=== PATIENT | male | born 1985 | race Caucasian/White ===

== ENCOUNTER 2019-01-08 10:50 | Emergency (ER) | payer MEDICAID ==
[~2019-01-08] VITALS: Ht 172.7 cm; Wt 113.0 kg
[2019-01-08] MEDS ORDERED: normal saline 1000ML IV soln IVB ONE (11:00)
[2019-01-08] MEDS ORDERED: LIDOcaine 1% w/EPI 1:200,000 injection 10mL vial IM ONE (11:10)
[2019-01-08] MEDS ORDERED: TETanus/Pertussis (Acell)/Diphther VAC/PF (Tdap-Adult) 0.5ml syringe IM ONE (11:10)
[2019-01-08] MEDS: morphine 2 MG/ML inj. syringe IV PRN ×2 (11:13→11:22)
[2019-01-08] MEDS ORDERED: ondansetron/PF 4mg/2ml inj IV ONE (11:15)
[2019-01-08 11:28] LABS: BASOPHILS % (AUTO) 0.4 % (0-1); EOSINOPHILS # (AUTO) 0.1 X10'3 (0-0.9); EOSINOPHILS % (AUTO) 0.9 % (0-6); HEMATOCRIT 44.4 % (42.0-52.0); HEMOGLOBIN 15.3 g/dl (14.0-17.9); LYMPHOCYTES # (AUTO) 1.4 X10'3 (1.1-4.8); LYMPHOCYTES % (AUTO) 17.1 % (21-51); MEAN CORPUSCULAR HEMOGLOBIN 33.2 PG (27.0-31.0); MEAN CORPUSCULAR HGB CONC 34.5 g/dL (33.0-36.5); MEAN CORPUSCULAR VOLUME 96.1 FL (78-98); MEAN PLATELET VOLUME 8.7 FL (7.4-10.4); MONOCYTES # (AUTO) 0.5 X10'3 (0-0.9); MONOCYTES % (AUTO) 5.9 % (2-12); NEUTROPHILS % (AUTO) 75.7 % (42-75); PLATELET COUNT 232 X10'3 (140-440); RED BLOOD COUNT 4.62 X10'6 (4.70-6.10); RED CELL DISTRIBUTION WIDTH 12.4 % (11.5-14.5)
[2019-01-08] MEDS ORDERED: LIDOcaine 1% W/epiNEPHrine 1:100,000 20ml vial IJ ONE (11:30)
[2019-01-08 12:30] VITALS: BP 164/81
== END 2019-01-08 12:32 | disposition home or self-care (01) ==
LOC: ER 10:51
DX: S81.012A Laceration without foreign body, left knee, initial encounter (principal); W01.0XXA Fall on same level from slipping, tripping and stumbling without subsequent striking against object, initial encounter; Y93.89 Activity, other specified; Y92.89 Other specified places as the place of occurrence of the external cause; Y99.8 Other external cause status
CPT/HCPCS: 12002; 36415; 73560; 85025; 90471; 90715; 96374; 96375; 99284; J2270; J2405; J7030; 99283; 99285

== ENCOUNTER 2019-01-13 07:40 | Emergency (ER) | payer MEDICAID ==
[~2019-01-13] VITALS: Ht 172.7 cm; Wt 118.2 kg
[2019-01-13 07:49] VITALS: BP 166/111
[2019-01-13] MEDS ORDERED: CEPH500C5 PO (08:36)
[2019-01-13] MEDS ORDERED: HYDR-3965 PO (08:37)
== END 2019-01-13 09:07 | disposition home or self-care (01) ==
LOC: ER 07:41
DX: S81.012D Laceration without foreign body, left knee, subsequent encounter (principal); Z79.899 Other long term (current) drug therapy; W27.8XXD Contact with other nonpowered hand tool, subsequent encounter
CPT/HCPCS: 99283

== ENCOUNTER 2019-01-22 08:20 | Emergency (ER) | payer MEDICAID ==
[~2019-01-22] VITALS: Ht 172.7 cm; Wt 118.2 kg
[2019-01-22 08:31] VITALS: BP 148/109
[2019-01-22] MEDS ORDERED: HYDROcodone/acetaminophen 5mg/325mg tablet PO ONE (08:40)
== END 2019-01-22 08:58 | disposition home or self-care (01) ==
LOC: ER 08:21
DX: S81.012D Laceration without foreign body, left knee, subsequent encounter (principal); W27.8XXD Contact with other nonpowered hand tool, subsequent encounter
CPT/HCPCS: 99282